=== PATIENT | female | born 1990 | race Caucasian/White ===

== ENCOUNTER 2017-07-17 21:11 | Inpatient (IN) | END 2017-07-21 16:30 | disposition home or self-care (01) | DRG 694 | DX: N20.1 Calculus of ureter (principal); Z68.43 Body mass index [BMI] 50.0-59.9, adult; E66.9 Obesity, unspecified; Z98.84 Bariatric surgery status ==

== ENCOUNTER 2017-08-04 05:51 | Inpatient (IN) | payer BC ==
[~2017-08-04] VITALS: Ht 157.5 cm; Wt 120.0 kg
[~2017-08-04 05:51] MED LIST: ACET325T40 PO; HYDR2TAB36 PO; MULT1TAB59 PO; OMEP20CA16 PO; TAMS-14 PO
[2017-08-04 08:04] VITALS: BP 131/69; RESP 19
[2017-08-04] MEDS ORDERED: HYDROmorphONE 1 MG/ML SYG IV STA (09:00)
[2017-08-04 09:12] VITALS: Ht 157.5 cm; Wt 120.0 kg
--- NOTE | 2017-08-04 09:40 | QN ---
Documentation Comment Pt seen and examined at bedside. KEVIN VELARDE MD Aug 04, 2017 09:40
[2017-08-04] MEDS: SOD CHLORIDE 0.9% 1,000 ML IV SCH ×2 (10:00→23:52)
[2017-08-04] MEDS ORDERED: MAGNESIUM HYDROXIDE 30ML CUP PO PRN (10:00)
[2017-08-04] MEDS ORDERED: OXYCODONE/ACETAMINOPHEN (5/325) TAB PO PRN (10:00)
[2017-08-04] MEDS ORDERED: NACL 0.9% 3 ML SYG IV SCH (10:00)
[2017-08-04] MEDS ORDERED: ZOLPIDEM 5 MG TAB PO PRN (10:00)
[2017-08-04 10:52] LABS: ADD UMIC YES; UR ASCORBIC ACID NEGATIVE (NEGATIVE); UR BACTERIA FEW /HPF (NONE SEEN); UR BILIRUBIN (Dip) NEGATIVE (NEGATIVE); UR BLOOD (Dip) 1+ mg/dL (NEGATIVE); UR CLARITY SLIGHTLY CLOUDY (CLEAR); UR COLOR YELLOW (YELLOW); UR GLUCOSE (Dip) NEGATIVE (NEGATIVE); UR KETONES (Dip) TRACE mg/dL (NEGATIVE); UR LEUKOCYTE ESTERASE (Dip) 1+ Leu/ul (NEGATIVE); UR MUCUS MODERATE /HPF (NONE SEEN); UR NITRITE (Dip) NEGATIVE (NEGATIVE); UR RBC 19 /HPF (0-5); UR SPECIFIC GRAVITY (Dip) 1.021 (1.003-1.030); UR SQUAMOUS EPITHELIAL CELL FEW /HPF (FEW); UR TOTAL PROTEIN (Dip) 1+ mg/dl (NEGATIVE); UR UROBILINOGEN (Dip) NEGATIVE (NEGATIVE)
[2017-08-04 11:22] LABS: ABNORMAL IP MESSAGE 1; BASOPHILS % 0.2 % (0.0-2.0); HEMATOCRIT 33.8 % (37.0-47.0); LYMPHOCYTES # 0.5 10^3/ul (0.8-2.9); LYMPHOCYTES % 3.9 % (15.0-51.0); MEAN CORPUSCULAR HEMOGLOBIN 28.3 pg (29.0-33.0); MEAN CORPUSCULAR HGB CONC 32.5 g/dl (32.0-37.0); MEAN CORPUSCULAR VOLUME 86.9 fl (82.0-101.0); MEAN PLATELET VOLUME 11.3 fl (7.4-10.4); MONOCYTE # 0.5 10^3/ul (0.3-0.9); MONOCYTES % 3.9 % (0.0-11.0); NEUTROPHIL # 12.3 10^3/ul (1.6-7.5); NEUTROPHILS % 91.6 % (39.0-77.0); PLATELET COUNT 201 10^3/UL (140-415); RED BLOOD COUNT 3.89 10^6/ul (4.20-5.40); RED CELL DISTRIBUTION WIDTH 15.1 % (11.5-14.5); WHITE BLOOD COUNT 13.4 10^3/ul (4.8-10.8)
[2017-08-04 11:26] LABS: POSITIVE DIFF @See below
[2017-08-04 11:42] LABS: INR 1.29; PROTIME 16.2 Sec (12.2-14.2); PT RATIO 1.3
[2017-08-04] MEDS: PIPER-TAZO 3.375 GM IV (PMX) 100 ML IVPB SCH ×2 (11:59→22:34)
[2017-08-04] MEDS: FAMOTIDINE 20 MG INJ IV SCH ×2 (11:59→22:39)
[2017-08-04 12:16] LABS: PARTIAL THROMBOPLASTIN TIME 34.8 Sec (25.0-35.0)
[2017-08-04 12:40] LABS: CALCIUM 8.7 mg/dl (8.4-10.2); CREATININE 1.01 mg/dl (0.44-1.00); POTASSIUM 3.2 mmol/L (3.5-5.1)
[2017-08-04] MEDS ORDERED: POTASSIUM CHLORIDE (SR) 20 MEQ TAB PO STA (13:04)
[2017-08-04] MEDS: ONDANSETRON 4 MG INJ IV PRN ×2 (13:10→22:34)
[2017-08-04] MEDS: HYDROmorphONE 0.5 MG/0.5 ML SYG IV PRN ×3 (13:11→22:36)
--- NOTE | 2017-08-04 13:14 | RADRPT ---
PROCEDURE: CT abdomen and pelvis without contrast. CLINICAL INDICATION: Abdominal pain. TECHNIQUE: CT scan of the abdomen and pelvis without contrast was performed on a multi-slice CT [facility] . Oral contrast was also administered. Sagittal and coronal reformatted images were obtaine d from the axial source images. One or more of the following dose reduction techniques were used: - Automated exposure control. - Adjustment of the mA and/or kV according to patient size. - Use of iterative reconstruction technique. DLP 1623.5 mGycm. CTDIvol 23.8 mGy COMPARISON: None FINDINGS: The lung bases are clear. there are surgical changes of the gastric sleeve. There is limited evalua tion of the solid viscera from the lack of IV contrast. There is an obstructing stone within the distal right ureter just proximal to the UVJ that measures 5 mm and this results in mild right-sided hydronephrosis and perinephric fat stranding. No other yanely al or ureteral calculi present with no left-sided hydronephrosis. There is hepatomegaly of the liver with a fluid density structures seen at the dome that measures 1. 5 cm likely a cyst. There is an area of localized low density along the falciform ligament which has an appearance characteristic of focal fat. There is no biliary ductal dilatation. The gallbladder is removed. The spleen is unremarkable without mass. The adrenal glands are within normal limits without mass. The pancreas is unremarkable without focal lesion or surrounding inflammatory changes. There is no bowel obstruction or focal bowel inflammation. The appendix is absent.. The There is no free air or free fluid. There are no enlarged lymph nodes. The aorta is unremarkable and there is no acute osseous abnormality. The uterus and adnexal structures are grossly unremarkable. IMPRESSION: There is an obstructing distal right ureteral stone that measures 5 mm in this results in mild right -sided hydronephrosis and perinephric fat stranding. No evidence of bowel obstruction or inflammation. 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 Hepatomegaly is seen with a likely small cysts within the right hepatic dome an area of likely focal fat adjacent to the falciform ligament. There are surgical changes of the gastric sleeve. RPTAT: AA .Vikash Cho MD, MD Date Time Electronically viewed and signed by .Vikash Cho MD, MD on 08/04/2017 13:14 .J/
[2017-08-04 14:00] VITALS: BP 136/61; RESP 19
--- NOTE | 2017-08-04 14:17 | RADRPT ---
PROCEDURE: XR Abdomen CLINICAL INDICATION: Right ureteral stone TECHNIQUE: An AP supine radiograph of the abdomen was submitted. COMPARISON: None FINDINGS: Multiple surgical clay project through the epigastrium and other clay are seen in the right la teral abdomen and the right upper quadrant. The bowel gas pattern is nonspecific without evidence of bowel obstruction. An ingested meal project s just inferior to the gastroesophageal junction. No organomegaly or discrete mass is identified. A 2 mm calcification again projects to the right pelvis for which a ureterolith cannot be excluded. The osseous elements appear unremarkable. The right hemidiaphragm remains mildly elevated. IMPRESSION: 1. There is again evidence of previous abdominal surgeries. 2. Nonspecific bowel gas pattern. 3. A 2 mm calcification again projects to the right pelvis for which a ureterolith cannot be exclud ed. 4. An ovoid calcific densities suspicious for an ingested pill projects inferior to the gastroesoph ageal junction. 5. Mildly elevated right hemidiaphragm. Physician Darnell Date Time Electronically viewed and signed by Physician Darnell on 08/04/2017 14:16 /
--- NOTE | 2017-08-04 14:19 | HP ---
DATE OF ADMISSION: 08/04/2017 REASON FOR ADMISSION: Transfer from [facility] due to a kidney stone. HISTORY OF PRESENT ILLNESS: This is a 27-year-old woman with a past medical history of gastric slee ve who was recently admitted into [facility] from 07/17/2017 until 07/21/2017 seco ndary to right flank pain. At that time, patient had a CT of the abdomen and pelvis showed a 5 mm s tone in the right upper ureter. Patient was instructed to continue to strain her urine and was sent home. The patient was seen by Dr. Giraldo and was discharged home with pain medications and if she has a recurrent pain then she should get a cystoscopy and rule out , however. Patient said th at since her discharge, she was intermittently having on and off right-sided flank pain. Last night the pain was worse, so she came to [facility] for worsening right-sided flank pain. She was also having some nausea, vomiting, unable to take anything p.o. for the last 3 days. Her sympt oms were accompanied by chills. The patient at [facility], the patient had a UA that was positive for leukocyte esterase, protein, blood, also had a CT of the abdomen and pelvis t hat showed that there is a 5 mm stone that has migrated to the UV junction with mild hydro and patie nt was transferred to [facility] for insurance reasons. PAST MEDICAL HISTORY: Significant for depression, abnormal Pap smear of the cervix, HPV positive. ALLERGIES: NSAIDs. PAST SURGICAL HISTORY: Appendectomy and gastric sleeve. SOCIAL HISTORY: She reports she has been smoking, she has been smoking 1.2 packs per day. She repo rts that she does not drink alcohol. Denies any drug use. Lives at home and works from home. FAMILY HISTORY: Noncontributory. REVIEW OF SYSTEMS: Patient complained of abdominal pain, right-sided flank pain, some dysuria, some nausea, vomiting, decreased p.o. intake, had some chills. Denied any fevers. Occasionally has hea daches. Denies any chest pain, shortness of breath, hematemesis, melena, bright red blood per rectu m. Denied any focal neurological deficits. PHYSICAL EXAMINATION: VITAL SIGNS: Temperature 100.0, blood pressure 131/69, pulse 61, respirations 19. GENERAL: Patient is awake, alert, oriented x4, does not appear to be in any acute distress. HEENT: Pupils equal, round, reactive to light. NECK: Supple, no JVD. HEART: Regular rate and rhythm. LUNGS: Clear to auscultate bilaterally. ABDOMEN: Soft, nontender, nondistended, positive normoactive bowel sounds. BACK: Patient has right CVA tenderness. EXTREMITIES: No clubbing, cyanosis, or edema. DIAGNOSTIC DATA: Shows potassium of 3.4, BUN of 18, creatinine 1.01. Last discharge, the creatinin e was 0.62, white count 13.4, hemoglobin 11.0, neutrophils 91, platelet count 201. CT of the abdome n and pelvis as above from [facility]. ASSESSMENT AND PLAN: This is a 27-year-old female presenting with: 1. Right-sided ureterovesical junction stone, presenting with abdominal pain, flank pain, nausea, v omiting. Positive for urinary tract infection. 2. Infected right ureteral stone with some mild hydro. 3. Leukocytosis secondary to #1. 4. Hypokalemia. 5. Acute kidney injury secondary to #1. 6. History of depression. 7. History of gastric sleeve surgery. Plan at this period of time, the patient is admitted to med-surg. We will give the patient pain con trol with IV Dilaudid, Zofran, n.p.o. I will start the patient on IV Zosyn. I spoke to Dr. Giraldo , who will be seeing the patient. We will send for urine cultures and blood cultures. The rest of the treatment will depend on the patient. Patient will most likely need ureteroscopy and cystoscopy . The rest of the treatment will depend on patient's hospitalization course. Dictated By: KEVIN MENDEZ/NOAH Conf#: [id number] DID#: [id number]
--- NOTE | 2017-08-04 18:16 | CONS ---
Date/Time of Note Date/Time of Note DATE: 08/04/17 TIME: 18:06 Assessment/Plan Assessment/Plan Chief Complaint/Hosp Course 27-year-old female with persistent right flank pain recurrent renal colic secondary to a 5 mm stone. Earlier this months the stone was in the upper ureter now the stone is down proximal to the ureterovesical junction. Plan is to do cystoscopy right ureteroscopy, laser lithotripsy, and insertion of right ureteral JJ stent. I did explain the procedure to the patient in detail, benefits, risks, possible complications. She did understand all of that and is agreeable to proceed Problems: Consultation Date/Type/Reason Admit Date/Time Aug 04, 2017 at 07:44 Date of Consultation: Aug 04, 2017 Type of Consultation: Urology Reason for Consultation Right ureteral stone Referring Provider: TRAVIS DAS MD Hx of Present Illness This is a 27-year-old female who was in the hospital here earlier this months with right upper ureteral stone. The patient was discharged home with the hope that she will pass the stone on her own. The patient presented to [facility] and was transferred to [facility] because of her insurance. She has right flank pain was nausea. CT scan of the abdomen and pelvis was done and showed a 5 mm stone in the distal right ureter causing mild right hydronephrosis. Constitutional: no complaints Eyes: no complaints ENT: no complaints Respiratory: no complaints Cardiovascular: no complaints Gastrointestinal: nausea Genitourinary: flank pain Musculoskeletal: no complaints Skin: no complaints Neurologic: no complaints Endocrine: no complaints Lymphatic: no complaints Psychological: no complaints Immunologic: no complaints Past Medical History Medical History: other (Depression and obesity) Past Surgical History Past Surgical Hx: appendectomy, other (Gastric sleeve) Family History Significant Family History: no pertinent family hx Social History Alcohol Use: rarely Smoking Status: Current every day smoker Other Social History She is a 3 para 3, normal deliveries Exam/Review of Systems Vital Signs Vitals Vital Signs Date Time Temp Pulse Resp B/P Pulse Ox O2 Delivery O2 Flow Rate FiO2 08/04/17 14:00 99.0 72 19 136/61 98 Exam Constitutional: alert Psych: no complaints Head: normocephalic Eyes: nl conjunctiva ENMT: nl external ears & nose Neck: supple Respiratory: normal air movement Cardiovascular: No edema Gastrointestinal: soft, tender (Right lower quadrant) Genitourinary - Female: CVA tenderness (Right side) Extremities: No calf tenderness, No edema Skin: nl turgor Results Result Diagram: 08/04/17 1058 08/04/17 1058 Results 24 hrs Laboratory Tests Test 08/04/17 10:15 08/04/17 10:58 Urine Color YELLOW Urine Clarity SLIGHTLY CLOUDY A Urine pH 5.0 Urine Specific [place] 1.021 Urine Ketones TRACE A Urine Nitrite NEGATIVE Urine Bilirubin NEGATIVE Urine Urobilinogen NEGATIVE Urine Leukocyte Esterase 1+ H Urine Microscopic RBC 19 H Urine Microscopic WBC 41 H Urine Squamous Epithelial Cells FEW Urine Bacteria FEW A Urine Mucus MODERATE Urine Hemoglobin 1+ H Urine Glucose NEGATIVE Urine Total Protein 1+ H Urine Test NEGATIVE White Blood Count 13.4 #H Red Blood Count 3.89 L Hemoglobin 11.0 L Hematocrit 33.8 L Mean Corpuscular Volume 86.9 Mean Corpuscular Hemoglobin 28.3 L Mean Corpuscular Hemoglobin Concent 32.5 Red Cell Distribution Width 15.1 H Platelet Count 201 Mean Platelet Volume 11.3 H Neutrophils % 91.6 H Lymphocytes % 3.9 L Monocytes % 3.9 Eosinophils % 0.0 Basophils % 0.2 Nucleated Red Blood Cells % 0.0 Neutrophils # 12.3 H Lymphocytes # 0.5 L Monocytes # 0.5 Eosinophils # 0.0 Basophils # 0.0 Nucleated Red Blood Cells # 0.0 Prothrombin Time 16.2 H Prothrombin Time Ratio 1.3 INR International Normalized Ratio 1.29 Activated Partial Thromboplast Time 34.8 Sodium Level 141 Potassium Level 3.2 L Chloride Level 109 Carbon Dioxide Level 25 Anion Gap 10 Blood Urea Nitrogen 18 Creatinine 1.01 H Glucose Level 96 Calcium Level 8.7 Imaging Free Text/Dictation CT scan of the abdomen and pelvis: There is an obstructing distal right ureteral stone that measures 5 mm in this results in mild right-sided hydronephrosis and perinephric fat stranding. No evidence of bowel obstruction or inflammation. 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 Hepatomegaly is seen with a likely small cysts within the right hepatic dome an area of likely focal fat adjacent to the falciform ligament. There are surgical changes of the gastric sleeve. Medications Medications Current Medications Sodium Chloride (NS) 1,000 ml @ 70 mls/hr [id number] IV Last administered on t 10:00; Admin Dose 70 MLS/HR; Start 08/04/17 at 09:34 Ondansetron HCl (Zofran Inj) 4 mg Q6H PRN IV NAUSEA AND/OR VOMITING Last administered on 08/04/17 13:10; Admin Dose 4 MG; Start 08/04/17 at 10:00 Metoclopramide HCl (Reglan) 10 mg Q6H PRN IV NAUSEA AND/OR VOMITING; Start at 10:00 Oxycodone/ Acetaminophen (Percocet (5/ 325)) 1 tab Q6H PRN PO MODERATE PAIN LEVEL 4-6; Start 08/04/17 at 10:00 Hydromorphone HCl (Dilaudid) 1 mg Q4H PRN IV SEVERE PAIN LEVEL 7-10 Last administered on 08/04/17 17:45; Admin Dose 1 MG; Start 08/04/17 at 10:00 Magnesium Hydroxide (Milk Of Mag) 30 ml DAILY PRN PO CONSTIPATION; Start 08/04 at 10:00 Zolpidem Tartrate (Ambien) 5 mg QHS PRN PO SLEEP; Start 08/04/17 at 10:00 Famotidine 20 mg 20 mg Q12 IV Last administered on 08/04/17 11:59; Admin Dose 20 MG; Start 08/04/17 at 11:00 Piperacillin Sod/ Tazobactam Sod (Zosyn 3.375gm/ 100 ml (Pmx)) 100 ml @ 200 mls /hr Q8 IVPB Last administered on 08/04/17 11:59; Admin Dose 200 MLS/HR; Start 08/04/17 at 11:00 RAKEL CUNNINGHAM MD Aug 04, 2017 18:16
[2017-08-04 20:00] VITALS: BP 126/57; RESP 18
[2017-08-05] VITALS (16 sets, daily range): BP systolic 109–135; BP diastolic 58–84; PULSE 74–86; RESP 15–19
[2017-08-05] MEDS: SOD CHLORIDE 0.9% 1,000 ML IV SCH ×2 (03:10→14:10)
[2017-08-05 05:18] LABS: BASOPHILS % 0.6 % (0.0-2.0); EOSINOPHILS % 0.2 % (0.0-7.0); HEMATOCRIT 31.8 % (37.0-47.0); HEMOGLOBIN 9.9 g/dl (12.0-16.0); LYMPHOCYTES # 0.7 10^3/ul (0.8-2.9); MEAN CORPUSCULAR HEMOGLOBIN 27.3 pg (29.0-33.0); MEAN CORPUSCULAR HGB CONC 31.1 g/dl (32.0-37.0); MEAN CORPUSCULAR VOLUME 87.6 fl (82.0-101.0); MEAN PLATELET VOLUME 11.2 fl (7.4-10.4); MONOCYTE # 0.4 10^3/ul (0.3-0.9); MONOCYTES % 7.8 % (0.0-11.0); NEUTROPHIL # 3.7 10^3/ul (1.6-7.5); NEUTROPHILS % 76.2 % (39.0-77.0); PLATELET COUNT 173 10^3/UL (140-415); RED BLOOD COUNT 3.63 10^6/ul (4.20-5.40); RED CELL DISTRIBUTION WIDTH 15.4 % (11.5-14.5); WHITE BLOOD COUNT 4.9 10^3/ul (4.8-10.8)
[2017-08-05] MEDS: PIPER-TAZO 3.375 GM IV (PMX) 100 ML IVPB SCH ×3 (05:40→23:24)
[2017-08-05 05:58] LABS: CALCIUM 8.6 mg/dl (8.4-10.2); CREATININE 1.05 mg/dl (0.44-1.00); MAGNESIUM 1.4 mg/dl (1.7-2.5); PHOSPHORUS 3.2 mg/dl (2.5-4.9); POTASSIUM 3.6 mmol/L (3.5-5.1)
[2017-08-05] MEDS: HYDROmorphONE 0.5 MG/0.5 ML SYG IV PRN ×3 (06:30→23:25)
[2017-08-05] MEDS ORDERED: CEFAZOLIN 1 GM INJ ONE ×2 (07:00→09:47)
[2017-08-05] MEDS ORDERED: SUCCINYLCHOLINE CHLORIDE 100 MG/5 ML SYG IV ONE (07:00)
--- NOTE | 2017-08-05 07:27 | HPN ---
Date/Time of Note Date/Time of Note DATE: 08/05/17 TIME: 07:26 Interval H&P Admission Note Pt. seen H&P reviewed: No system changes RAKEL CUNNINGHAM MD Aug 05, 2017 07:27
[2017-08-05] MEDS: FAMOTIDINE 20 MG INJ IV SCH ×2 (09:00→20:52)
[2017-08-05] MEDS ORDERED: MIDAZOLAM 1 MG/ML 2 ML INJ ONE (09:47)
[2017-08-05] MEDS ORDERED: NEOSTIGMINE 3 MG/3 ML SYRINGE ONE (09:47)
[2017-08-05] MEDS ORDERED: FENTAnyl 50 MCG/ML VIAL ONE (09:47)
[2017-08-05] MEDS ORDERED: GLYCOPYRROLATE 0.4 MG INJ ONE (09:47)
[2017-08-05] MEDS ORDERED: PROPOFOL 20 ML ONE (09:47)
[2017-08-05] MEDS ORDERED: ROCURONIUM 50 MG INJ ONE (09:47)
[2017-08-05] MEDS ORDERED: DEXAMETHASONE 4 MG/ML 1 ML INJ ONE (09:48)
[2017-08-05] MEDS ORDERED: ONDANSETRON 4 MG INJ ONE (09:48)
[2017-08-05] MEDS ORDERED: OXYCODONE/ACETAMINOPHEN (5/325) TAB PO PRN ×2 (10:30)
[2017-08-05] MEDS ORDERED: MEPERIDINE 25 MG INJ IV PRN (10:30)
[2017-08-05] MEDS ORDERED: MIDAZOLAM 1 MG/ML 2 ML INJ IV PRN (10:30)
[2017-08-05] MEDS ORDERED: LABETALOL HCL 20MG INJ IV PRN (10:30)
[2017-08-05] MEDS ORDERED: FENTAnyl 50 MCG/ML VIAL IV PRN ×3 (10:30)
[2017-08-05] MEDS ORDERED: DIPHENHYDRAMINE 50 MG INJ IV PRN (10:30)
[2017-08-05] MEDS ORDERED: EPHEDrine SULFATE 50 MG/5 ML SYG IV PRN (10:30)
[2017-08-05] MEDS ORDERED: ALBUTEROL 0.083% (NEB) 2.5 MG/3 ML AMP HHN PRN (10:30)
[2017-08-05] MEDS ORDERED: hydrALAzine 20 MG INJ IV PRN (10:30)
[2017-08-05] MEDS ORDERED: ONDANSETRON 4 MG INJ IV PRN (10:30)
[2017-08-05] MEDS ORDERED: HYDROmorphONE (0.2 MG/ML) 10ML SYG IV PRN ×3 (10:30)
[2017-08-05] MEDS ORDERED: TRIMETHOBENZAMIDE 100 MG/ML VIAL IM PRN (10:30)
[2017-08-05] MEDS ORDERED: IPRATROPIUM (NEB) 0.5 MG/2.5 ML AMP HHN PRN (10:30)
[2017-08-05] MEDS ORDERED: SUGAMMADEX SODIUM 200 MG/2 ML VIAL IV ONE (10:58)
--- NOTE | 2017-08-05 11:23 | OPR ---
Date/Time of Note Date/Time of Note DATE: 08/05/17 TIME: 11:13 Operative Report Procedure Date: Aug 05, 2017 Preoperative Diagnosis Distal right ureteral stone Postoperative Diagnosis Distal right ureteral stone Operation/Procedure Performed Cystoscopy, right ureteroscopy, laser lithotripsy, and insertion of right ureteral JJ stent 6 Vincentian by 22 cm long Surgeon see signature line Legislative Aide None Anesthesia Type: general Anesthesiologist: Moncho Alvarez M.D. Estimated Blood Loss: none Transfusion none Specimen Right ureteral stone fragments Grafts/Implants none Complications none Pt Condition Post Procedure: stable Disposition: PACU Indications Distal right ureteral stone Procedure Description The patient was brought to the operating room and general anesthesia was induced. The patient received 3 g of Ancef IV at the start of the procedure. Timeout was done and the patient was identified by her name,birthdate and the procedure and the side of the procedure. The patient was then positioned in the lithotomy position and the genital area was prepped and draped in the usual sterile manner. A 21 Vincentian cystoscope sheath was introduced into the bladder and urine was collected for culture and sensitivity. Right ureteral orifice was identified and then cannulated was a 5 Vincentian open ended ureteral catheter. A 0.035 zip wire was advanced through the open ended catheter all the way up to the kidney. The open-ended was removed leaving the zip wire in place. The open-ended was then introduced through the second working channel of the scope and the ureteral orifice was cannulated again and a 0.035 sensor wire was passed all the way up to the kidney. The open-ended was removed leaving the sensor wire in place. Then the cystoscope was removed. The sensor wire was used as a safety wire and the zip wire was used to advance the rigid ureteroscope on it into the ureter. The stone was then visualized and broken with the holmium laser into pieces. These pieces were basketed and dropped into the bladder until the ureter was free of stone fragments. The ureteroscope was then removed. Cystoscopy was done again and the stone fragments were drained out of the bladder. Then the cystoscope was reintroduced into the bladder on the safety wire and a 6 Vincentian by 22 cm long JJ stent was advanced on the sensor wire, had its proximal and curling into the kidney and the distal end curling into the bladder. The distal end is connected to a string that was taped to the patient's right groin. The patient was transferred to recovery room in stable and satisfactory condition RAKEL CUNNINGHAM MD Aug 05, 2017 11:23
[2017-08-05] MEDS: ONDANSETRON 4 MG INJ IV PRN ×2 (14:05→23:24)
--- NOTE | 2017-08-05 14:35 | RADRPT ---
PROCEDURE: Intraoperative imaging of the abdomen and pelvis with fluoroscopy. CLINICAL INDICATION: Obstructing distal right ureteral calculus. Intraoperative. TECHNIQUE: 10 images of the abdomen and pelvis were obtained in the operating room with an image i ntensifier. No radiologist was in attendance. 41 seconds of fluoroscopy time was used. COMPARISON: CT scan of the abdomen and pelvis dated 08/07. FINDINGS: Images demonstrate placement of a double pigtail right ureteral stent in satisfactory position. IMPRESSION: 1. Satisfactory intraoperative imaging of the abdomen and pelvis. RPTAT: QQ .Aidan Boggs MD, MD Date Time Electronically viewed and signed by .Aidan Boggs MD, on 08/05/2017 14:34 .R/
[2017-08-05] MEDS ORDERED: HYDROmorphONE 1 MG/ML SYG IV STA (17:36)
--- NOTE | 2017-08-05 18:10 | PN ---
Date/Time of Note Date/Time of Note DATE: 08/05/17 TIME: 18:08 Assessment/Plan VTE Prophylaxis VTE Prophylaxis Intervention: LMWH (no lovenox), SCD's Lines/Catheters IV Catheter Type (from Nrs): Peripheral IV Assessment/Plan Chief Complaint/Hosp Course 1. S/p Cystoscopy, right ureteroscopy, laser lithotripsy, and insertion of right ureteral JJ stent 6 Maltese by 22 cm long 2. Obesity 3. Acute kidney injury 4. History of depression. 5. History of gastric sleeve surgery. Problems: Assessment/Plan 1. continue IV therapy 2. pain control Subjective 24 Hr Interval Summary Constitutional: improved, no complaints Genitourinary: flank pain Exam/Review of Systems Vital Signs Vitals Vital Signs Date Time Temp Pulse Resp B/P Pulse Ox O2 Delivery O2 Flow Rate FiO2 08/05/17 13:15 98.2 74 17 130/72 97 Room Air 08/05/17 12:00 2.0 Intake and Output 08/04/17 08/04/17 08/05/17 15:00 23:00 07:00 Intake Total 100 ml 450 ml 840 ml Output Total 800 ml Balance 100 ml -350 ml 840 ml Exam Constitutional: alert, oriented Cardiovascular: regular rate and rhythm Gastrointestinal: soft Results Result Diagram: 08/05/17 0446 08/05/17 0447 Results 24 hrs Laboratory Tests Test 08/05/17 04:46 08/05/17 04:47 White Blood Count 4.9 # Red Blood Count 3.63 L Hemoglobin 9.9 L Hematocrit 31.8 L Mean Corpuscular Volume 87.6 Mean Corpuscular Hemoglobin 27.3 L Mean Corpuscular Hemoglobin Concent 31.1 L Red Cell Distribution Width 15.4 H Platelet Count 173 Mean Platelet Volume 11.2 H Neutrophils % 76.2 Lymphocytes % 15.0 Monocytes % 7.8 Eosinophils % 0.2 Basophils % 0.6 Nucleated Red Blood Cells % 0.0 Neutrophils # 3.7 Lymphocytes # 0.7 L Monocytes # 0.4 Eosinophils # 0.0 Basophils # 0.0 Nucleated Red Blood Cells # 0.0 Sodium Level 144 Potassium Level 3.6 Chloride Level 111 H Carbon Dioxide Level 28 Anion Gap 9 Blood Urea Nitrogen 17 Creatinine 1.05 H Glucose Level 91 Calcium Level 8.6 Phosphorus Level 3.2 Magnesium Level 1.4 L Medications Medications Current Medications Sodium Chloride (NS) 1,000 ml @ 70 mls/hr [id number] IV Last administered on 03:10; Admin Dose 70 MLS/HR; Start 08/04/17 at 09:34 Ondansetron HCl (Zofran Inj) 4 mg Q6H PRN IV NAUSEA AND/OR VOMITING Last administered on 08/05/17 14:05; Admin Dose 4 MG; Start 08/04/17 at 10:00 Metoclopramide HCl (Reglan) 10 mg Q6H PRN IV NAUSEA AND/OR VOMITING; Start at 10:00 Oxycodone/ Acetaminophen (Percocet (5/ 325)) 1 tab Q6H PRN PO MODERATE PAIN LEVEL 4-6; Start 08/04/17 at 10:00 Hydromorphone HCl (Dilaudid) 1 mg Q4H PRN IV SEVERE PAIN LEVEL 7-10 Last administered on 08/05/17 15:47; Admin Dose 1 MG; Start 08/04/17 at 10:00 Magnesium Hydroxide (Milk Of Mag) 30 ml DAILY PRN PO CONSTIPATION; Start 08/04 at 10:00 Zolpidem Tartrate (Ambien) 5 mg QHS PRN PO SLEEP; Start 08/04/17 at 10:00 Famotidine 20 mg 20 mg Q12 IV Last administered on 08/04/17 22:39; Admin Dose 20 MG; Start 08/04/17 at 11:00 Piperacillin Sod/ Tazobactam Sod (Zosyn 3.375gm/ 100 ml (Pmx)) 100 ml @ 200 mls /hr Q8 IVPB Last administered on 08/05/17 14:05; Admin Dose 200 MLS/HR; Start 08/04/17 at 11:00 ALIZE ACEVEDO Aug 05, 2017 18:10
[2017-08-05] MEDS ORDERED: MAGNESIUM SULFATE 2 GM/50 ML 50 ML IVPB ONE (20:00)
[2017-08-06 02:05] VITALS: BP 119/77; RESP 18
[2017-08-06] MEDS: SOD CHLORIDE 0.9% 1,000 ML IV SCH ×2 (03:11→04:28)
[2017-08-06] MEDS: METOCLOPRAMIDE 10 MG INJ IV PRN ×2 (03:26→14:29)
[2017-08-06] MEDS: HYDROmorphONE 0.5 MG/0.5 ML SYG IV PRN ×3 (03:28→14:30)
[2017-08-06] MEDS: PIPER-TAZO 3.375 GM IV (PMX) 100 ML IVPB SCH ×2 (06:06→14:29)
[2017-08-06 06:26] LABS: BASOPHILS % 0.3 % (0.0-2.0); HEMATOCRIT 31.1 % (37.0-47.0); LYMPHOCYTES # 0.7 10^3/ul (0.8-2.9); LYMPHOCYTES % 20.2 % (15.0-51.0); MEAN CORPUSCULAR HEMOGLOBIN 27.8 pg (29.0-33.0); MEAN CORPUSCULAR HGB CONC 32.2 g/dl (32.0-37.0); MEAN CORPUSCULAR VOLUME 86.4 fl (82.0-101.0); MONOCYTE # 0.4 10^3/ul (0.3-0.9); MONOCYTES % 12.2 % (0.0-11.0); NEUTROPHIL # 2.4 10^3/ul (1.6-7.5); NEUTROPHILS % 67.3 % (39.0-77.0); PLATELET COUNT 171 10^3/UL (140-415); RED CELL DISTRIBUTION WIDTH 14.9 % (11.5-14.5); WHITE BLOOD COUNT 3.5 10^3/ul (4.8-10.8)
[2017-08-06 06:55] LABS: CALCIUM 8.7 mg/dl (8.4-10.2); CREATININE 0.73 mg/dl (0.44-1.00); POTASSIUM 3.7 mmol/L (3.5-5.1)
[2017-08-06 08:14] VITALS: BP 123/78; RESP 20
[2017-08-06] MEDS: FAMOTIDINE 20 MG INJ IV SCH (08:58)
[2017-08-06] MEDS: ONDANSETRON 4 MG INJ IV PRN (08:58)
--- NOTE | 2017-08-06 12:40 | PN ---
Date/Time of Note Date/Time of Note DATE: 08/06/17 TIME: 12:35 Assessment/Plan VTE Prophylaxis VTE Prophylaxis Intervention: ambulation Lines/Catheters IV Catheter Type (from Nrsg): Peripheral IV Assessment/Plan Chief Complaint/Hosp Course 27-year-old female who is status post ureteroscopy and laser lithotripsy and insertion of right ureteral JJ stent patient is doing well, the pain is controllable with oral pain medications .therefore she could be discharged today on oral pain medications and antibiotic and I will see her in the office in about 5-6 days to remove her JJ stent Problems: Subjective 24 Hr Interval Summary Constitutional: no complaints Eyes: no complaints ENT: no complaints Respiratory: no complaints Cardiovascular: no complaints Gastrointestinal: no complaints Genitourinary: dysuria, other (Status post ureteroscopy and laser lithotripsy and insertion of a JJ stent) Musculoskeletal: no complaints Skin: no complaints Neurologic: no complaints Endocrine: no complaints Exam/Review of Systems Vital Signs Vitals Vital Signs Date Time Temp Pulse Resp B/P Pulse Ox O2 Delivery O2 Flow Rate FiO2 08/06/17 08:14 97.9 62 20 123/78 100 08/05/17 15:00 Room Air 08/05/17 12:00 2.0 Intake and Output 08/05/17 08/05/17 08/06/17 15:00 23:00 07:00 Intake Total 1140 ml 850 ml 2600 ml Output Total 20 ml 550 ml Balance 1120 ml 300 ml 2600 ml Exam Constitutional: alert, oriented Psych: no complaints Head: normocephalic Eyes: nl conjunctiva ENMT: nl external ears & nose Neck: supple Respiratory: normal air movement Cardiovascular: No edema Gastrointestinal: soft Genitourinary - Female: No CVA tenderness Musculoskeletal: nl extremities to inspection Results Result Diagram: 08/06/17 0502 08/06/17 0502 Results 24 hrs Laboratory Tests Test 08/06/17 05:02 White Blood Count 3.5 #L Red Blood Count 3.60 L Hemoglobin 10.0 L Hematocrit 31.1 L Mean Corpuscular Volume 86.4 Mean Corpuscular Hemoglobin 27.8 L Mean Corpuscular Hemoglobin Concent 32.2 Red Cell Distribution Width 14.9 H Platelet Count 171 Mean Platelet Volume 12.0 H Neutrophils % 67.3 Lymphocytes % 20.2 Monocytes % 12.2 H Eosinophils % 0.0 Basophils % 0.3 Nucleated Red Blood Cells % 0.0 Neutrophils # 2.4 Lymphocytes # 0.7 L Monocytes # 0.4 Eosinophils # 0.0 Basophils # 0.0 Nucleated Red Blood Cells # 0.0 Sodium Level 141 Potassium Level 3.7 Chloride Level 109 Carbon Dioxide Level 24 Anion Gap 12 Blood Urea Nitrogen 14 Creatinine 0.73 Glucose Level 98 Calcium Level 8.7 Medications Medications Current Medications Sodium Chloride (NS) 1,000 ml @ 70 mls/hr [id number] IV Last administered on 03:11; Admin Dose 70 MLS/HR; Start 08/04/17 at 09:34 Ondansetron HCl (Zofran Inj) 4 mg Q6H PRN IV NAUSEA AND/OR VOMITING Last administered on 08/06/17 08:58; Admin Dose 4 MG; Start 08/04/17 at 10:00 Metoclopramide HCl (Reglan) 10 mg Q6H PRN IV NAUSEA AND/OR VOMITING Last administered on 08/06/17 03:26; Admin Dose 10 MG; Start 08/04/17 at 10:00 Oxycodone/ Acetaminophen (Percocet (5/ 325)) 1 tab Q6H PRN PO MODERATE PAIN LEVEL 4-6; Start 08/04/17 at 10:00 Hydromorphone HCl (Dilaudid) 1 mg Q4H PRN IV SEVERE PAIN LEVEL 7-10 Last administered on 08/06/17 08:59; Admin Dose 1 MG; Start 08/04/17 at 10:00 Magnesium Hydroxide (Milk Of Mag) 30 ml DAILY PRN PO CONSTIPATION; Start 08/04 at 10:00 Zolpidem Tartrate (Ambien) 5 mg QHS PRN PO SLEEP; Start 08/04/17 at 10:00 Famotidine 20 mg 20 mg Q12 IV Last administered on 08/06/17 08:58; Admin Dose 20 MG; Start 08/04/17 at 11:00 Piperacillin Sod/ Tazobactam Sod (Zosyn 3.375gm/ 100 ml (Pmx)) 100 ml @ 200 mls /hr Q8 IVPB Last administered on 08/06/17 06:06; Admin Dose 200 MLS/HR; Start 08/04/17 at 11:00 RAKEL CUNNINGHAM MD Aug 06, 2017 12:40
--- NOTE | 2017-08-06 13:08 | PDOCDIS ---
Discharge Instructions CONDITION Patient Condition: Stable HOME CARE INSTRUCTIONS: Diet Instructions: Low Fat /CholesterolSpecial Diet: npo ACTIVITY: Bathing Restrictions: Sponge Bath FOLLOW UP/APPOINTMENTS Follow-up Plan dr Giraldo in his office in a week SCHOOL/WORK RELEASE May return to School/Work with: With Restrictions ALIZE ACEVEDO Aug 06, 2017 13:08
[2017-08-06] MEDS ORDERED: ONDA-43 PO (13:17)
[2017-08-06] MEDS ORDERED: METO5TAB58 PO (13:17)
--- NOTE | 2017-08-07 20:18 | DS ---
Date/Time of Note Date/Time of Note DATE: 08/07/17 TIME: 19:53 Discharge Summary Admission/Discharge Info Admit Date/Time Aug 04, 2017 at 07:44 Discharge Date/Time Aug 06, 2017 at 16:30 Discharge Diagnosis S/p ureteroscopy, laser lithotripsy and insertion of right ureteral JJ stent Patient Condition: Stable Consults Dr Giraldo Procedures ureteroscopy, laser lithotripsy and insertion of right ureteral JJ stent Hospital Course 27-year-old female had a 5 mm stone in the right upper ureter. She wAS HOSPITALIZED FOR FEW DAYS IN [facility] 2016 to the [facility] for pain. Her pain was controlled with oral pain medications she was discharged home and instructed to continue to strain her urine at home and if she does have pain take the oral pain medications. Patient was instructed that if during home stay pain medications do not control her pain then she could come back to the emergency room and reevaluated and then if we have to do cystoscopy and ureteroscopy. She return back to hospital complaining of severe pain. There were performed ureteroscopy, laser lithotripsy and insertion of right ureteral JJ stent. During hospitalization patient is doing well, the pain is controllable with oral pain medications The procedures were successful. dr Giraldo discharged pt on oral pain medications and antibiotic and he will see her in the office in about 5-6 days to remove her JJ stent. DX:1. Right ureteral stone. S/p ureteroscopy, laser lithotripsy and insertion of right ureteral JJ stent 2. Obesity. 3. History of gastric sleeve. Home Meds Active Scripts Ondansetron Hcl* (Zofran*) 4 Mg Tab, 4 MG PO Q6H Y for NAUSEA AND OR VOMITING for 10 Days, TAB Prov:MEZENTSEVAALIZE 08/06/17 Metoclopramide* (Reglan*) 5 Mg Tablet, 5 MG PO AC MEALS for 10 Days, TAB Prov:MEZENTSEVAALIZE 08/06/17 Tamsulosin Hcl* (Flomax*) 0.4 Mg Cap.er.24h, 0.4 MG PO HS for 30 Days, CAP Prov:MEZENTSEVA,ALIZE 07/21/17 Acetaminophen (MAPAP) 325 Mg Tablet, 650 MG PO Q6H Y for PAIN AND OR ELEVATED TEMP for 10 Days, TAB Prov:MEZENTSEVA,ALIZE 07/21/17 Reported Medications Multivitamins* (Multivitamins*) 1 Each Tablet, 1 TAB PO DAILY, TAB 07/17/17 Omeprazole* (Omeprazole*) 20 Mg Capsule., 20 MG PO DAILY, #30 CAP 07/17/17 Discontinued Scripts Hydromorphone Hcl* (Dilaudid*) 2 Mg Tablet, 2 MG PO Q4H Y for PAIN for 7 Days, TAB Prov:ALIZE ACEVEDO 07/21/17 Follow-up Plan dr Giraldo in his office in a week Primary Care Provider Inge Kelly Time spent on discharge: < 30 minutes ALIZE ACEVEDO Aug 07, 2017 20:10
== END 2017-08-06 16:30 | disposition home or self-care (01) | DRG 669 ==
LOC: MS1 07:44
PROVIDERS: ADMIT Internal Medicine Nephrology; ATTEND Internal Medicine Nephrology
PROC: 0T768DZ Dilation of Right Ureter with Intraluminal Device, Via Natural or Artificial Opening Endoscopic (ICD-10-PCS; 2017-08-05)
PROC: 0TC68ZZ Extirpation of Matter from Right Ureter, Via Natural or Artificial Opening Endoscopic (ICD-10-PCS; principal; 2017-08-05 09:00)
DX: N13.2 Hydronephrosis with renal and ureteral calculous obstruction (principal); N17.9 Acute kidney failure, unspecified; Z68.42 Body mass index [BMI] 45.0-49.9, adult; E66.9 Obesity, unspecified; F32.9 Major depressive disorder, single episode, unspecified; F17.210 Nicotine dependence, cigarettes, uncomplicated; Z98.84 Bariatric surgery status; E87.6 Hypokalemia
CPT/HCPCS: 74000; 74176; 74430; 80048; 81001; 83735; 84100; 84703; 85025; 85610; 85730; 87040; 87086; 88300; C2617; J0690; J1100; J1170; J2250; J2405; J2543; J2710; J2765; J3010; J3475; J7030

== ENCOUNTER 2018-09-24 09:12 | Emergency (ER) | END 2018-09-24 11:39 | disposition home or self-care (01) ==

== ENCOUNTER 2018-09-24 11:46 | Outpatient (CLI) | END 2018-09-24 12:57 | disposition home or self-care (01) ==